=== PATIENT | female | born 1980 | race Caucasian/White ===

== ENCOUNTER 2017-05-24 05:38 | Inpatient (IN) | payer OTHER ==
[2017-05-24] VITALS (16 sets, daily range): BP systolic 130–165; BP diastolic 74–101
[2017-05-24 09:19] LABS: EOSINOPHIL (%) 0.4 % (0-5); EOSINOPHIL COUNT 0.1 K/uL (0-0.3); HEMATOCRIT 37.3 % (36.0-46.0); IMMATURE GRANULOCYTE (%) 1.4 % (0.0-0.7); IMMATURE GRANULOCYTE COUNT 0.2 K/uL; INSTRUMENT ABS NEUTROPHIL CT 8.2 K/uL; LYMPHOCYTE COUNT 2.5 K/uL (1.0-2.8); MCH 29.9 PG (29.0-34.0); MCHC 33.5 G/DL (30.0-36.0); MCV 89.2 FL (83-99); MEAN PLAT.VOLUME 12.4 uM^3 (9.5-12.4); MONOCYTE (%) 7.8 % (3-12); MONOCYTE COUNT 0.9 K/uL (0-0.8); NEUTROPHIL COUNT 8.2 K/uL (1.8-6.4); PLATELET COUNT 160 K/uL (156-360); RBC DIS.WIDTH-CV 13.5 % (11.8-14.6); RBC DIS.WIDTH-SD 44.2 % (39-53); RED BLOOD COUNT 4.18 M/uL (3.80-5.20); WHITE BLOOD COUNT 11.8 K/uL (4.1-10.2)
[2017-05-25 03:00] VITALS: BP 140/66
[2017-05-25 04:12] VITALS: BP 123/75
[2017-05-25 07:27] LABS: EOSINOPHIL (%) 0.3 % (0-5); EOSINOPHIL COUNT 0.1 K/uL (0-0.3); HEMATOCRIT 27.4 % (36.0-46.0); IMMATURE GRANULOCYTE (%) 1.3 % (0.0-0.7); IMMATURE GRANULOCYTE COUNT 0.2 K/uL; INSTRUMENT ABS NEUTROPHIL CT 11.5 K/uL; LYMPHOCYTE COUNT 3.4 K/uL (1.0-2.8); MCH 30.3 PG (29.0-34.0); MCHC 33.2 G/DL (30.0-36.0); MCV 91.3 FL (83-99); MEAN PLAT.VOLUME 11.8 uM^3 (9.5-12.4); MONOCYTE (%) 8.2 % (3-12); MONOCYTE COUNT 1.4 K/uL (0-0.8); NEUTROPHIL (%) 69.4 % (45-76); NEUTROPHIL COUNT 11.5 K/uL (1.8-6.4); PLATELET COUNT 131 K/uL (156-360); RBC DIS.WIDTH-CV 13.8 % (11.8-14.6); RBC DIS.WIDTH-SD 45.9 % (39-53); WHITE BLOOD COUNT 16.6 K/uL (4.1-10.2)
[2017-05-25 07:33] LABS: POINT-OF-CARE METER ID UU13113801
[2017-05-25 08:23] VITALS: BP 136/77
[2017-05-25 09:11] LABS: POINT-OF-CARE METER ID UU13113801
[2017-05-25 12:30] VITALS: BP 132/75
[2017-05-25 14:51] VITALS: BP 125/65
[2017-05-25 19:16] VITALS: BP 163/79
[2017-05-26 00:02] VITALS: BP 137/77
[2017-05-26 04:13] VITALS: BP 134/74
[2017-05-26 07:11] VITALS: BP 130/78
[2017-05-26] MEDS ORDERED: ENDOCET 5-3251 EACH PO (09:19)
[2017-05-26] MEDS ORDERED: CHROMAGEN,1 CAPSULE PO (09:19)
[2017-05-26] MEDS ORDERED: LABETALOL HCL200 MG PO (09:19)
[2017-05-26 12:00] VITALS: BP 128/82
[2017-05-26 16:16] VITALS: BP 147/84
[2017-05-26 20:10] VITALS: BP 153/78
[2017-05-27 03:00] VITALS: BP 142/84
[2017-05-27 08:07] VITALS: BP 132/77
[2017-05-27 11:43] VITALS: BP 158/91
[2017-05-27 13:44] VITALS: BP 154/96
== END 2017-05-27 14:45 | disposition home or self-care (01) | DRG 765 ==
LOC: LDRP-OP → 2WEST 05:39 → LDRP-OP 19:20 → 2WEST 05-27 14:45 → LDRP-OP 07-11 13:51
PROVIDERS: Obstetrics & Gynecology Obstetrics
PROC: 10D00Z1 Extraction of Products of Conception, Low, Open Approach (ICD-10-PCS; principal; 2017-05-24)
DX: O32.1XX0 Maternal care for breech presentation, not applicable or unspecified (principal); O14.04 Mild to moderate pre-eclampsia, complicating childbirth; O24.420 Gestational diabetes mellitus in childbirth, diet controlled; O99.02 Anemia complicating childbirth; D62 Acute posthemorrhagic anemia; Z3A.37 37 weeks gestation of pregnancy; Z37.0 Single live birth
CPT/HCPCS: 36415; 80053; 82247; 82248; 82261 90; 82570; 82776 90; 82948; 83615; 84030 90; 84156; 84510 90; 84550; 85025; 85027; 86850; 86900; 86901; J0690; J1100; J1885; J2274; J2405; J3010; J7050; J7120